=== PATIENT | female | born 1990 | race Two or more races ===

== ENCOUNTER → 2021-08-23 | Outpatient (CLI) | payer BC ==
--- NOTE | 2021-08-24 17:58 | RAD ---
Pelvic ultrasound transabdominal and transvaginal: Reason for examination: Pelvic pain. Transabdominal and transvaginal ultrasound examination of the pelvis was performed. Uterus measures 8 x 7 x 5 cm in greatest dimensions and shows no focal lesion. The endometrium is not abnormally thickened. A 2.4 x 2 x 2.1 cm mass is seen in the region of the uterine fundus may repres ent a fibroid. This contains some vascularity. The ovaries were not identified transabdominally or transvaginally. No free fluid is identified. IMPRESSION: 2.4 cm mass in the uterine fundus possibly representing a fibroid with some vascularity. Ovaries were not identified transabdominally or transvaginally. Electronically signed by: Lin Kaminski MD (08/24/2021 5:56 PM) [place]
== END ==
LOC: US 15:38
PROVIDERS: ATTEND Obstetrics & Gynecology
DX: N85.8 Other specified noninflammatory disorders of uterus (principal)
CPT/HCPCS: 76830; 76856